=== PATIENT | female | born 1990 | race Caucasian/White ===

== ENCOUNTER → 2019-08-04 07:12 | Day surgery (SDC) | payer OTHER ==
[~2019-08-04 07:12] MED LIST: Bupivacaine 0.5%* 50 ML MDV VIAL ONE; Dexamethasone IV* 4 MG/ML 1 ML (4 MG) ONE; Famotidine IV* 10 MG/ML 2 ML (20 mg) IV ONE; Famotidine IV* 10 MG/ML 2 ML (20 mg) ONE; Lactated Ringers 1000 ML Bag* 1,000 ML IV SCH; Levalbuterol 0.63MG/3ML NEB* UNIT OF USE INH PRN; Lidocaine 2% MPF* 2 ML VIAL ONE; Midazolam* 1 MG/ML 5 ML VIAL (5 MG) ONE; Naloxone* 0.4 MG/ML 1 ML VIAL IV PRN; Ondansetron INJ* 2 MG/ML VIAL IV PRN; Ondansetron INJ* 2 MG/ML VIAL ONE; Propofol* 10 MG/ML 20 ML BTL ONE; Rocuronium* 10 MG/ML VIAL ONE; Sugammadex * 200 MG/2 ML VIAL IV PUSH ONE; ceFAZolin 2 GM PREMIX in ORs 2 GM/50 ML BAG ONE; fentaNYL* 50 MCG/ML 2 ML VIAL (100 MCG VIAL) ONE; oxyCODONE/Acetamin 5/325 MG* TAB ONE
[2019-08-04] MEDS: Buffered Lidocaine 1% SYRIN* 1 ML/SYRINGE INTRADERM ONE ×2 (08:40→08:50)
[2019-08-04] MEDS: oxyCODONE/Acetamin 5/325 MG* TAB PO PRN ×2 (11:29→12:36)
[2019-08-04] MEDS: fentaNYL* 50 MCG/ML 2 ML VIAL (100 MCG VIAL) IV PRN ×2 (11:29→11:37)
[2019-08-04 12:03] VITALS: BP 113/69
--- NOTE | 2019-08-04 12:58 | OP ---
OPERATIVE REPORT: DATE OF OPERATION: 08/04/19 DATE OF : 89 SURGEON: John Domingo MD PRE-OP DIAGNOSIS: Cholecystitis. POST-OP DIAGNOSIS: Cholecystitis. OPERATIVE PROCEDURE: Robotic cholecystectomy. INDICATIONS: Abdominal pain, gallbladder sludge, symptoms concerning for pain related to gallbladder among others. Risks of surgery included but not limited to bleeding, infection, injury to intraabdo reena contents, including the bowel, bile duct, liver, other intraabdominal contents, persistent pain , no relief of symptoms explained to the patient who seemed to understand and agreed to the procedure , and all questions were answered. DESCRIPTION OF PROCEDURE: The patient was taken to the operating room and placed supine. Preoperati ve antibiotics were given. After the successful induction of general endotracheal anesthesia, the ab domen was prepped and draped in sterile fashion. A time-out was performed indicating correct patient and correct procedure. The patient was then marked for placement of the initial trocar. The patien t had a very small body habitus, quite narrow, thin with rib cage that extended down on either side s harply. A 5 mm trocar was placed in the left upper quadrant under direct visualization of the camera using a bladeless Optiview trocar. Pneumoperitoneum was achieved with 12 mmHg. A camera was placed in the abdomen and the abdomen was scanned. There was no obvious injury from trocar placement. Due to her small body habitus, she required 4 other size 4 trocar placement in order to perform this gabrielle otically and a left lower quadrant 8-mm trocar was placed under direct visualization of the camera. A umbilical trocar was placed 8 mm under direct visualization of the camera and 2 right-sided abdomin al trocar sites were chosen. The robot was brought in and docked after each of the trocars was repla jazlyn under visualization of the camera. The patient has already been placed in the reverse Trendelenb urg and tilted slightly towards her left position. The fundus of the gallbladder was grasped and ret racted up and over the liver. The cystic duct was identified, isolated along the cystic artery and a nother small arterial branch was going directly to the gallbladder. These were all clipped and divid ed and the gallbladder was removed from the hepatic bed using the cautery on the scissors. It was pl aced into an Endobag and removed from the umbilical port site. The abdomen was once again scanned. No obvious injury was noted. EBL minimal for the case. Hemostasis was intact. Pneumoperitoneum was released from the abdomen. The trocars were removed. Umbilical fascia was closed with an interrupt ed 0-Vicryl suture. The skin was closed with Monocryl and glue. She tolerated the procedure well. S he was extubated and taken to the recovery room in stable condition. [id number]/[facility] #: [id number]
== END | disposition home or self-care (01) ==
LOC: OR 07:12
PROVIDERS: ATTEND Surgery
DX: K81.1 Chronic cholecystitis (principal); J45.909 Unspecified asthma, uncomplicated; K21.9 Gastro-esophageal reflux disease without esophagitis
CPT/HCPCS: 47562; S2900; 81025; 88304; A9270-GY; J0690; J1100; J2250; J2405; J2704; J3010; J3490